=== PATIENT | male | born 1955 | race Caucasian/White ===

== ENCOUNTER → 2018-06-27 | Outpatient (CLI) | payer OTHER ==
[~2018-06-27] VITALS: Ht 185.4 cm; Wt 107.5 kg
[~2018-06-27] MED LIST: ASPI-983 PO; ATOR40TA PO; CATHETER FLUSH 10 ML SYR IV PRN; CLOP75TA28 PO; LEVO200T6 PO; LISI-552 PO; METO-387 PO; NAPR220T66 PO; REGADENOSON 0.4 MG/5 ML SYR (LEXISCAN) IV ONE
[2018-06-27 09:46] VITALS: BP 134/65
[2018-06-27 09:49] VITALS: BP 151/72
[2018-06-27 09:52] VITALS: BP 141/62
[2018-06-28 12:08] VITALS: BP 140/64
--- NOTE | 2018-06-28 12:08 | Cardiology Stress Test Report ---
Stress Test Report Type of NM Stress Test: Test Type: LEXISCAN 0.4MG/5ML Date of Procedure/Referring: Date of Procedure: Jun 27, 2018 PCP Brandon Gaston MD Admitting Physician Herbie Santoyo DO Indications: Chest pain Baseline Heart Rate: 54 Baseline Blood Pressure: Blood Pressure Systolic: 140 Blood Pressure Diastolic: 64 Baseline EKG: Baseline EKG: sinus rhythm Summary & Conclusion: Summary: The patient was brought to the stress lab after informed consent was taken. Stress test was performed according to the Lexiscan protocol. 0.4 mg of IV Lexiscan was given. Low-grade exercise was performed. Baseline EKG showed sinus rhythm at 54 BPM. Initial blood pressure was 140/64 mmHg. Maximum heart rate was 75 bpm and blood pressure 151/72 mmHg. Patient did not have any chest pain, arrhythmias or ST segment changes during the stress test. 10.96 mCi of Myoview were given for rest imaging and 32.2 mCi of Myoview given for stress imaging. Transient ischemic dilatation score 1.06, EF 49 percent. Normal wall motion. Moderate area of inferior apical reversible ischemia. SSS 11, SRS 9, SDS 2. Conclusion: Pharmacological stress test was negative for ischemia. Borderline LV function with no wall motion abnormalities. Evidence of inferior/apical ischemia, coronary angiography is recommended. Brandon GASTON MD Jun 28, 2018 12:08 pm
== END ==
LOC: CARD 07:21
PROVIDERS: ATTEND Internal Medicine Interventional Cardiology
DX: I73.9 Peripheral vascular disease, unspecified (principal); R07.89 Other chest pain; I25.10 Atherosclerotic heart disease of native coronary artery without angina pectoris; I10 Essential (primary) hypertension; E78.5 Hyperlipidemia, unspecified; R06.02 Shortness of breath
CPT/HCPCS: 78452; 93017

== ENCOUNTER 2018-07-07 07:42 | Day surgery (SDC) | payer OTHER ==
[2018-07-07] VITALS (12 sets, daily range): BP systolic 128–180; BP diastolic 59–78
[~2018-07-07] VITALS: Ht 185.4 cm; Wt 108.0 kg
[~2018-07-07 07:42] MED LIST changes: -CATHETER FLUSH 10 ML SYR IV PRN; -REGADENOSON 0.4 MG/5 ML SYR (LEXISCAN) IV ONE
[2018-07-07] MEDS ORDERED: NS IV 1000 ML 1,000 ML IV SCH (07:52)
[2018-07-07] MEDS ORDERED: LIDOCAINE 1% INJ 20 ML 20 ML VIAL ONE (07:55)
[2018-07-07] MEDS ORDERED: HEParin (CATH LAB) 2,000 ML IV ONE (07:55)
[2018-07-07 08:20] LABS: HEMOGLOBIN 15.1 G/DL (13.3-17.7); MEAN PLATELET VOLUME 10.2 FL (7.4-10.4); RED BLOOD COUNT 4.73 10^6/uL (4.35-5.85); RED CELL DISTRIBUTION WIDTH 13.7 % (10.0-14.5)
[2018-07-07] MEDS ORDERED: HEParin 1000 UNIT/ML (10ML VIAL) FOR BOLUS ONE (08:27)
[2018-07-07] MEDS ORDERED: fentaNYL INJECTION 100 MCG/2 ML AMP ONE ×2 (08:27→11:07)
[2018-07-07] MEDS ORDERED: MIDAZOLAM 5 MG/5 ML (VERSED) VIAL ONE ×2 (08:27→11:07)
[2018-07-07 08:37] LABS: ALANINE AMINOTRANSFERASE 23 U/L (0-55); ALBUMIN 4.3 GM/DL (3.2-4.5); ALKALINE PHOSPHATASE 54 U/L (40-136); BILIRUBIN,TOTAL 0.6 MG/DL (0.1-1.0); BUN/CREATININE RATIO 13; CALCIUM 9.6 MG/DL (8.5-10.1); CARBON DIOXIDE 22 MMOL/L (21-32); CHLORIDE 111 MMOL/L (98-107); CREATININE SERUM 1.09 MG/DL (0.60-1.30); GFR ESTIMATED > 60; GLUCOSE 94 MG/DL (70-105); INR 1.1 (0.8-1.4); POTASSIUM 4.3 MMOL/L (3.6-5.0); PROTHROMBIN TIME PATIENT 13.9 SEC (12.2-14.7); SODIUM 142 MMOL/L (135-145); TOTAL PROTEIN 6.8 GM/DL (6.4-8.2)
[2018-07-07] MEDS ORDERED: METO-370 PO (08:43)
[2018-07-07] MEDS ORDERED: ATOR40TA70 PO (08:44)
[2018-07-07] MEDS ORDERED: FLU QUADRIvalent (5+ YOA) 2018-2019 (AFLURIA) 0.5 ML IM ONE (08:45)
[2018-07-07] MEDS ORDERED: TICAGRELOR 90 MG TABLET (BRILINTA) PO ONE (10:19)
[2018-07-07] MEDS ORDERED: NITRO DRIP 25000 MCG/D5W 250 ML IV ONE (10:25)
[2018-07-07] MEDS ORDERED: ENALAPRILAT 2.5 MG/2 ML (VASOTEC) VIAL IV ONE (11:22)
[2018-07-07] MEDS ORDERED: PATIENT MAY USE OWN MEDS, ALL PO SCH (12:30)
--- NOTE | 2018-07-07 12:30 | Coronary Angiography & PCI ---
Coronary Angiography & PCI DATE OF PROCEDURE: 07/07/18 INDICATION: Recurrent chest pain, abnormal nuclear stress test, previous history of PCI. PREOPERATIVE DIAGNOSIS: Recurrent chest pain, abnormal nuclear stress test, previous history of PCI. POSTOPERATIVE DIAGNOSIS: Severe left circumflex artery stenosis, severe distal RCA in-stent restenosis. HISTORY: This is a 62-year-old gentleman with history of previous PCI who presented with recurrent chest pain. Patient also has significant history of PAD. Nuclear stress test was abnormal. Therefore, the patient was scheduled for coronary angiography. PROCEDURES PERFORMED: 1.Coronary angiography. 2.Left heart catheterization. 3.PCI to the left circumflex artery. 4. PTCA to distal RCA in-stent restenosis. 5. Abdominal aortogram. 6. Abdominal aortogram with bilateral lower extremity runoff. COMPLICATIONS: None. SPECIMENS: None. ESTIMATED BLOOD LOSS: 10 mL ANESTHESIA: Conscious sedation ANTICOAGULATION: IV heparin CONTRAST: 290 mL. FLUOROSCOPY: 23.9 minutes. FLOUROSCOPY DOSE: 2515 mgy. PROCEDURE DETAILS: The patient is a 62 male and was brought to the denture laboratory technician after informed consent was taken. All the risks and complications were explained in detail; this included the risk of bleeding, vascular damage, stroke , SC and even . The patient was draped and prepped in the usual sterile fashion. Access was gained in the right femoral artery with a 5 Polish sheath. Right coronary artery angiogram, left heart catheterization was done with a JR4 catheter. Left coronary angiography was performed with a JL4 catheter. Abdominal aortogram was performed since we had difficulty advancing the wire through the iliac artery. History of previous PAD. Abdominal aortogram and bilateral lower extremity runoff was performed with a pigtail catheter. FINDINGS: 1.Left main: Patent. 2.LAD: Mild diffuse disease. Patent stent in the LAD with mild in-stent restenosis. 3.Left circumflex artery: Moderate to severe proximal left circumflex artery stenosis. Stenosis severity 70 percent. Severe ostial OM1 artery stenosis. Stenosis severity is 90 percent. 4.RCA: Severe distal RCA in-stent restenosis. Stenosis severity is 90 percent. 5.Left heart catheterization: LV pressure 131/5 mmHg. LVEDP 13 mmHg. Aortic pressure 109/47 mmHg. Mild to moderate LV systolic dysfunction with global hypokinesis. No gradient across the aortic valve. 6. Abdominal aortogram: Mild diffuse disease in the abdominal aorta. Patent bilateral renal arteries. 7. Abdominal aortogram with bilateral lower extremity runoff: Mild diffuse disease in the distal abdominal aorta. Mild to moderate disease in the right common iliac artery. Mild to moderate disease in the right SFA is noted. Moderate disease in the stent in the left common iliac artery is noted. Moderate disease in the left external iliac artery. At least mild disease in the SFA in the left lower extremity. RECOMMENDATIONS: 1. PCI to the left circumflex artery/OM 1. 2. PTCA to severe distal RCA in-stent restenosis. INTERVENTION DETAILS: EBU 4.0 guide catheter, whisper extra-support guidewire, IV heparin for anticoagulation. ACT was done once which was over 200 seconds. The lesion in the obtuse marginal artery was crossed with the whisper extra-support wire. We then took a Xience Leah 2.5 x 12 mm stent and deployed it at 12 glenna for 37 seconds. The AV groove artery was significantly pinched. Therefore we took a BMW wire and placed it in the OM 1 artery. The whisper extra-support wire was pulled back to the level of the AV groove artery and advanced into the AV groove artery. We then took the 2.5 stent balloon and did an inflation at 16 glenna for 35 seconds in the AV groove artery. We then placed an NC Quantum 3.0 x 6 mm balloon on the BMW wire into the stent. The stent balloon of the 2.5 stent was advanced over the whisper wire. Kissing balloons were done with a 2.5 balloon at 14 glenna and the 3.0 NC balloon at 9 glenna for 15 seconds. Good results were noted however haziness was noted in the proximal left circumflex artery which also had moderate to severe disease. We therefore took another Xience Leah 2.75 15 mm stent and deployed it at 14 glenna for 30 seconds in the proximal left circumflex artery with an overlap with the previous stent. The overlap zone was postdilated with the same stent balloon at 18 glenna for 11 seconds. The previous stent was also postdilated at 12 glenna for 13 seconds. Excellent results were noted. All the wires were taken out and post-angiogram results were excellent with no vascular complication. We then took a JR4 guide catheter for intervention to the right coronary artery with significant dampening was noted. Therefore we changed to a JR4 guide catheter with side holes. We used the same whisper wire and crossed the lesion in the distal RCA with the whisper wire. We took the NC Quantum 3.0 x 6 mm balloon and 2 inflations at 14 and 16 glenna at 35 and 30 seconds respectively. Excellent results were noted with no residual stenosis. The wire was taken out and post-angiogram did not show any vascular complication. Mynx closure of the right femoral artery. CONCLUSIONS: 1. Severe left circumflex artery/OM 1 stenosis treated with 2 drug-eluting stents. 2. Severe distal RCA in-stent restenosis treated successfully with PTCA. 3. Long-term dual antiplatelet therapy. 4. Electrolytes, BUN, creatinine the morning. Aamir Gaston MD, FACP, FACC, [facility] Interventional Cardiology Brandon GASTON MD Jul 07, 2018 12:30 pm
--- NOTE | 2018-07-07 12:30 | Cardiac Procedure Note-CS/ASA ---
Pre-Procedure Note Pre-Op Procedure Note H&P Reviewed The H&P was reviewed, patient examined and no changes noted. Date H&P Reviewed: Jul 07, 2018 Time H&P Reviewed: 09:00 Conscious Sedation Pre-Proced Time 09:00 ASA Score 3 For ASA 3 and 4: Consider anesthesia and medical clearance. Also, for patients with a history of failed moderate sedation consider anesthesia. Airway Lungs Heart ASA score ASA 1: a normal healthy patient ASA 2: a patient with a mild systemic disease (mid diabetes, controlled hypertension, obesity ASA 3: a patient with a severe systemic disease that limits activity (angina , COPD, prior Myocardial infarction) ASA 4: a patient with an incapacitating disease that is a constant threat to life (CHF, renal failure) ASA 5: a moribund patient not expected to survive 24 hrs. (ruptured aneurysm) ASA 6: a declared brain patient whose organs are being harvested. For emergent operations, add the letter E after the classification Mallampati Classification Grade 1 Sedation Plan Analgesia, Amnesia, Plan communicated to team members, Discussed options with patient/fam, Discussed risks with patient/fam The patient is an appropriate candidate to undergo the planned procedure, sedation, and anesthesia. The patient immediately re-assessed prior to indication. Brandon CARCAMO MD Jul 07, 2018 12:30 pm
[2018-07-07] MEDS: NS IV 1000 ML 1,000 ML IV SCH ×2 (12:52→23:41)
[2018-07-07] MEDS: TICAGRELOR 90 MG TABLET (BRILINTA) PO SCH (20:26)
[2018-07-08 03:27] VITALS: BP 147/73
[2018-07-08 04:10] VITALS: BP 148/67
[2018-07-08 05:05] LABS: HEMOGLOBIN 14.2 G/DL (13.3-17.7); MEAN PLATELET VOLUME 10.2 FL (7.4-10.4); RED BLOOD COUNT 4.45 10^6/uL (4.35-5.85); RED CELL DISTRIBUTION WIDTH 13.7 % (10.0-14.5); WHITE BLOOD COUNT 9.4 10^3/uL (4.3-11.0)
[2018-07-08 05:18] LABS: BUN/CREATININE RATIO 15; CARBON DIOXIDE 20 MMOL/L (21-32); CHLORIDE 112 MMOL/L (98-107); CREATININE SERUM 1.01 MG/DL (0.60-1.30); GFR ESTIMATED > 60; GLUCOSE 94 MG/DL (70-105); POTASSIUM 3.8 MMOL/L (3.6-5.0); SODIUM 141 MMOL/L (135-145)
[2018-07-08] MEDS ORDERED: Levothyroxine Sodium 200 MCG PO SCH (06:30)
[2018-07-08 08:00] VITALS: BP 131/61
[2018-07-08] MEDS ORDERED: FLU QUADRIvalent (5+ YOA) 2018-2019 (AFLURIA) 0.5 ML IM ONE (08:41)
[2018-07-08] MEDS: TICAGRELOR 90 MG TABLET (BRILINTA) PO SCH (08:54)
[2018-07-08] MEDS: NS IV 1000 ML 1,000 ML IV SCH (08:58)
[2018-07-08] MEDS ORDERED: ASPIRIN E.C. 81 MG (ECOTRIN) TAB PO SCH ×2 (09:00)
[2018-07-08] MEDS ORDERED: ATORVASTATIN 40 MG (LIPITOR) TABLET PO SCH (09:00)
[2018-07-08] MEDS ORDERED: meTOproloL SUCCINATE 50 MG (TOPROL XL) TAB PO SCH (09:00)
[2018-07-08] MEDS ORDERED: lisINopril 20 MG (PRINIVIL) TABLET PO SCH (09:00)
--- NOTE | 2018-07-08 09:19 | Cardiology Discharge Summary ---
Diagnosis/Chief Complaint Date of Admission 07/07/2018 Date of Discharge 07/08/2018 Admission Diagnosis Recurrent chest pain, abnormal nuclear stress test, previous PCI Final/Discharge Diagnosis Status post PCI to left circumflex artery and PTCA to severe in-stent restenosis of distal RCA Chief Complaint/HPI Chief Complaint/HPI This is a 62-year-old gentleman with history of CAD, status post PCI and PAD, status post bilateral iliac artery stents. He presents with recurrent chest pain. Abnormal nuclear stress test. Coronary angiography was recommended. Discharge Summary Procedures PCI to left circumflex artery/OM 1 with 2 drug-eluting stents. PTCA to severe in-stent restenosis of distal RCA. Discharge Physical Examination Stable. Hospital Course Unremarkable. Pending Labs Laboratory Tests 07/08/18 04:38: White Blood Count 9.4, Red Blood Count 4.45, Hemoglobin 14.2, Hematocrit 39, Mean Corpuscular Volume 88, Mean Corpuscular Hemoglobin 32, Mean Corpuscular Hemoglobin Concent 36, Red Cell Distribution Width 13.7, Platelet Count 202, Mean Platelet Volume 10.2, Sodium Level 141, Potassium Level 3.8, Chloride Level 112, Carbon Dioxide Level 20, Anion Gap 9, Blood Urea Nitrogen 15, Creatinine 1.01, Estimat Glomerular Filtration Rate > 60, BUN/Creatinine Ratio 15, Glucose Level 94, Calcium Level 9.0 Discussion & Recommendations Discussion Dual antiplatelet therapy was discussed at length. Patient will be discharged to follow up in office in 2-4 weeks. Follow up appt.: Dr. Gaston in 2-4 weeks. Dicharge Diet: Cardiac Diet Activity as Tolerated: Yes Home Medications Reviewed patient Home Medication Reconciliation performed by pharmacy medication reconciliations unit technician and/or nursing. Patients Allergies have been reviewed. Discharge Home Medications: Reviewed and agree with Discharge Medication list on patient's Discharge Instruction sheet Condition at discharge Stable. Instructions to patient/family Discussed discharge instructions with patient and family. Brandon GASTON MD Jul 08, 2018 09:19
[2018-07-08] MEDS ORDERED: TICA90TA PO (09:21)
--- NOTE | 2018-07-08 09:22 | Discharge Inst-Post CATH ---
Discharge Inst-CATH Post Cardiac Cath D/C Inst Follow Up/Plan Dr Gaston in two to three weeks. CARDIAC CATH DISCHARGE INSTRUCTIONS *Hold Metformin for 48 hours post heart cath. ACTIVITY * Go Home directly and rest. * Limit activity of the leg (or wrist if it was used) for 7 days including aerobics, swimming, jogging, bicycling, etc. * Restrict stair-climbing for 7 days if possible, if not, climb up with your non -cath leg, then bring together on the same step. * Avoid lifting, pushing, pulling or excessive movement of the affected extremity for 7 days. * Customary sexual activity may be resumed after 2 days-use caution not to use a position that strains or causes pain to the affected extremity. * No driving for 24 hours. * NO SMOKING. * Avoid straining for bowel movements for 7 days. * Gentle walking on level ground is allowed. * Returning to work will depend on the type of procedure and the results. Your doctor will discuss this with you. CALL YOUR DOCTOR FOR ANY OF THE FOLLOWING: *If bleeding from the puncture site occurs- Apply gentle pressure to site with clean cloth and call your doctor or EMS. * If a knot or lump forms under the skin, increases in size, or causes pain. * If bruising appears to be worsening or moving further down your leg instead of disappearing. * Temperature above 101 F. CARE OF YOUR GROIN INCISION; * Bruising or purple discoloration of the skin near the puncture site is common. * You may shower only, no bathtub bathing for 5 days. Be careful to avoid slipping as your leg may feel stiff. * If a closure device was used on your femoral artery, please see the attached guide regarding care of the device and your leg. * Leave the dressing on, until removed by office staff. CARE OF YOUR WRIST INCISION; * Bruising or purple discoloration of the skin near the puncture site is common. * You may shower. * DO NOT submerge wrist. * Leave dressing on, until removed by office staff.. Brandon GASTON MD Jul 08, 2018 9:22 am
== END 2018-07-08 10:20 | disposition home or self-care (01) ==
LOC: CATH 07:42 → 4TH 11:55 → CATH 07-08 10:20
PROVIDERS: ATTEND Internal Medicine Interventional Cardiology
DX: I25.10 Atherosclerotic heart disease of native coronary artery without angina pectoris (principal); T82.855A Stenosis of coronary artery stent, initial encounter; Z95.5 Presence of coronary angioplasty implant and graft; Z79.899 Other long term (current) drug therapy; E78.5 Hyperlipidemia, unspecified; I25.2 Old myocardial infarction; I10 Essential (primary) hypertension; E03.9 Hypothyroidism, unspecified; G47.33 Obstructive sleep apnea (adult) (pediatric); I73.9 Peripheral vascular disease, unspecified; F17.210 Nicotine dependence, cigarettes, uncomplicated
CPT/HCPCS: 36415; 75625; 80048; 80053; 85027; 85347; 85610; 85730; 87081; 90471; 90686; 93005; 93458

== ENCOUNTER 2021-09-02 12:00 | Day surgery (SDC) | payer MEDICARE, OTHER ==
[~2021-09-02] VITALS: Ht 185.4 cm; Wt 105.1 kg
[2021-09-02] VITALS (10 sets, daily range): BP systolic 122–152; BP diastolic 56–65
[2021-09-02 10:50] LABS: BASOPHILS # (AUTO) 0.1 10^3/uL (0.0-0.1); BASOPHILS % (AUTO) 1 % (0-10); EOSINOPHILS # (AUTO) 0.2 10^3/uL (0.0-0.3); EOSINOPHILS % (AUTO) 2 % (0-10); HEMATOCRIT 43 % (40-54); HEMOGLOBIN 15.3 g/dL (13.3-17.7); LYMPHOCYTES # (AUTO) 2.4 10^3/uL (1.0-4.0); LYMPHOCYTES % (AUTO) 24 % (12-44); MEAN CORPUSCULAR HEMOGLOBIN 32 pg (25-34); MEAN CORPUSCULAR HGB CONC 35 g/dL (32-36); MEAN CORPUSCULAR VOLUME 92 fL (80-99); MEAN PLATELET VOLUME 10.1 fL (9.0-12.2); MONOCYTES # (AUTO) 0.8 10^3/uL (0.0-1.0); MONOCYTES % (AUTO) 8 % (0-12); NEUTROPHILS # (AUTO) 6.4 10^3/uL (1.8-7.8); NEUTROPHILS % (AUTO) 64 % (42-75); PLATELET COUNT 190 10^3/uL (130-400)
[2021-09-02 11:05] LABS: PROTHROMBIN TIME PATIENT 13.2 SEC (12.2-14.7)
[2021-09-02 11:13] LABS: ALBUMIN 4.2 GM/DL (3.2-4.5); BILIRUBIN,TOTAL 0.4 MG/DL (0.1-1.0); CALCIUM 9.5 MG/DL (8.5-10.1); CREATININE SERUM 1.17 MG/DL (0.60-1.30); POTASSIUM 4.1 MMOL/L (3.6-5.0); TOTAL PROTEIN 6.9 GM/DL (6.4-8.2)
[~2021-09-02 12:00] MED LIST changes: +ASPI-1238 PO; -ASPI-983 PO; +ATOR40TA70 PO; +CLOP75TA69 PO; +HEParin (CATH LAB) 1,000 ML IV ONE; +LIDOCAINE 1% INJ 20 ML VIAL ONE; -LISI-552 PO; +LISI20TA26 PO; -METO-387 PO; +METO50TA7 PO; +MIDAZOLAM 5 MG/5 ML (VERSED) VIAL ONE; +MTP25TSR PO; +NS IV 1000 ML 1,000 ML IV SCH; +NS IV 1000 ML 1,000 ML ONE; +TICA90TA PO; +fentaNYL INJ 100 MCG/2 ML AMP ONE
--- NOTE | 2021-09-02 12:50 | Cardiac Procedure Note-CS/ASA ---
Pre-Procedure Note Pre-Op Procedure Note H&P Reviewed The H&P was reviewed, patient examined and no changes noted. Date H&P Reviewed: Sep 02, 2021 Time H&P Reviewed: 11:30 Conscious Sedation Pre-Proced Time 11:30 ASA Score 3 For ASA 3 and 4: Consider anesthesia and medical clearance. Also, for patients with a history of failed moderate sedation consider anesthesia. Airway Lungs Heart ASA score ASA 1: a normal healthy patient ASA 2: a patient with a mild systemic disease (mid diabetes, controlled hypertension, obesity ASA 3: a patient with a severe systemic disease that limits activity (angina, COPD, prior Myocardial infarction) ASA 4: a patient with an incapacitating disease that is a constant threat to life (CHF, renal failure) ASA 5: a moribund patient not expected to survive 24 hrs. (ruptured aneurysm) ASA 6: a declared brain- patient whose organs are being harvested. For emergent operations, add the letter E after the classification Mallampati Classification Grade 2 Sedation Plan Analgesia, Amnesia, Plan communicated to team members, Discussed options with patient/fam, Discussed risks with patient/fam The patient is an appropriate candidate to undergo the planned procedure, sedation, and anesthesia. The patient immediately re-assessed prior to indication. NESHA CRUZ MD FACP FAC CCDS Sep 02, 2021 12:50
--- NOTE | 2021-09-02 12:53 | Discharge Inst-Cardiology ---
Discharge Inst-Cardiac Discharge Medications Continued Medications: Aspirin (Aspirin EC) 81 Mg Tablet.dr 81 MG PO DAILY for 90 Days, TAB 3 Refills Atorvastatin Calcium (Atorvastatin Calcium) 40 Mg Tablet 40 MG PO DAILY, TAB Clopidogrel Bisulfate (Plavix) 75 Mg Tablet 75 MG PO DAILY, TAB Levothyroxine Sodium (Levothyroxine Sodium) 200 Mcg Tablet 200 MCG PO DAILY, TAB Lisinopril (Lisinopril) 20 Mg Tablet 20 MG PO DAILY for 90 Days, TAB 3 Refills Metoprolol Succinate (Metoprolol Succinate) 50 Mg Tab.er.24h 50 MG PO DAILY, TAB NESHA CRUZ MD FACP FACC CCDS Sep 02, 2021 12:52
--- NOTE | 2021-09-02 12:53 | Discharge Inst-Post CATH ---
Discharge Inst-CATH/EP Post Cardiac Cath/EP D/C Inst Follow Up/Plan Dr Chapa at [facility] for consideration of CABG within [address] Rodgers in one month ACTIVITY * Go Home directly and rest. * Limit activity of the leg (or wrist if it was used) for 7 days including aerobics, swimming, jogging, bicycling, etc. * Restrict stair-climbing for 7 days if possible, if not, climb up with your non-cath leg, then bring together on the same step. * Avoid lifting, pushing, pulling or excessive movement of the affected extremity for 7 days. * Customary sexual activity may be resumed after 2 days-use caution not to use a position that strains or causes pain to the affected extremity. * No driving for 24 hours. * NO SMOKING. * Avoid straining for bowel movements for 7 days. * Gentle walking on level ground is allowed. * Returning to work will depend on the type of procedure and the results. Your doctor will discuss this with you. CALL YOUR DOCTOR FOR ANY OF THE FOLLOWING: *If bleeding from the puncture site occurs- Apply gentle pressure to site with clean cloth and call your doctor or EMS. * If a knot or lump forms under the skin, increases in size, or causes pain. * If bruising appears to be worsening or moving further down your leg instead of disappearing. * Temperature above 101 F. CARE OF YOUR GROIN INCISION; * Bruising or purple discoloration of the skin near the puncture site is common. * You may shower only, no bathtub bathing for 5 days. Be careful to avoid slipping as your leg may feel stiff. * If a closure device was used on your femoral artery, please see the attached guide regarding care of the device and your leg. * Leave dressing on FOR 24 hours. CARE OF YOUR WRIST INCISION; * Bruising or purple discoloration of the skin near the puncture site is common. * You may shower. * DO NOT submerge wrist. * Leave dressing on FOR 24 hours. NESHA RODGERS MD FACP FAC CCDS Sep 02, 2021 12:53
[2021-09-02] MEDS ORDERED: NS IV 1000 ML 1,000 ML IV SCH (13:00)
[2021-09-02] MEDS ORDERED: PATIENT MAY USE OWN MEDS, ALL PO SCH (13:00)
--- NOTE | 2021-09-02 14:45 | CARDIAC CATHETERIZATION ---
DATE OF SERVICE: 09/02/2021 CARDIAC CATHETERIZATION REPORT INDICATION FOR PROCEDURE: The patient is a 66-year-old gentleman, who has a history of coronary artery disease and who has been having symptoms that are suggestive of increasing angina with exertion. Cardiac catheterization was carried out today after having obtained an informed consent. DESCRIPTION OF PROCEDURE: He was brought to the cardiac catheterization laboratory in a fasting state. Right groin was prepped and draped in the usual sterile fashion. Lidocaine 1% was used for local anesthesia. Modified Seldinger technique was used to advance a 5-Burmese sheath in the right femoral artery, 5-Burmese JL4 catheter was used for left coronary angiography, 5-Burmese JR4 catheter for right coronary angiography, and 5-Burmese pigtail catheter was used for left heart catheterization and left ventricular angiography. At the end of the procedure, angiography of the right femoral artery was carried out through the sheath and Mynx was used to achieve hemostasis. He tolerated the procedure well. HEMODYNAMICS: Left ventricular end-diastolic pressure following coronary angiography was approximately 14 mmHg. There was no significant pressure gradient on pullback across the aortic valve. CORONARY ANGIOGRAPHY: Left main coronary artery has moderate distal stenosis. Left anterior descending artery has 70% ostial and proximal stenosis. Left circumflex artery has approximately 80% ostial and proximal stenosis. Right coronary artery has diffuse mild plaques. There are patent stents in the mid left anterior descending and in the left circumflex obtuse marginal systems. LEFT VENTRICULAR ANGIOGRAPHY: Left ventricular angiography was carried out in the right anterior oblique projection. Global left ventricular systolic function is well preserved. Left ventricular ejection fraction is approximately 50%. CONCLUSIONS: 1. Coronary artery disease primarily consisting of 70% to 80% ostial and proximal stenosis of the left anterior descending and approximately 80% stenosis of the ostial left circumflex. The mid left anterior descending and the mid left circumflex and the proximal first obtuse marginal have patent stented segments. The right coronary artery also has a patent stented segment in its mid portion. 2. Well preserved global left ventricular systolic function with an ejection fraction of approximately 50%. 3. Left ventricular end-diastolic pressure 14 mmHg. DISCUSSION AND RECOMMENDATIONS: Based on results of the study, coronary artery bypass surgery appears to be the best treatment option. We spoke with the cardiovascular surgical service at [facility] and a referral is being made for evaluation for coronary artery bypass surgery. Meanwhile, we have advised the patient of the findings and the plan of treatment and to avoid any activity that results in chest discomfort until bypass surgery has been accomplished. We have advised compliance with medications. We have advised that he reports to the emergency room if he had an episode of chest discomfort that is not relieved with one single nitroglycerin tablet with three to four minutes of the onset of chest discomfort. Job ID: [id number] DocumentID: [id number] Dictated Date: 09/02/2021 12:35:51 [place] Date: 09/02/2021 14:44:57 Dictated By: NESHA CRUZ MD, MA, FACP, FACC,
== END 2021-09-02 16:04 | disposition home or self-care (01) ==
LOC: CATH 12:00 → SDC 12:50 → CATH 16:04
PROVIDERS: ATTEND Internal Medicine Cardiovascular Disease
DX: I25.10 Atherosclerotic heart disease of native coronary artery without angina pectoris (principal); I73.9 Peripheral vascular disease, unspecified; I65.22 Occlusion and stenosis of left carotid artery; E78.5 Hyperlipidemia, unspecified; F17.210 Nicotine dependence, cigarettes, uncomplicated; Z79.890 Hormone replacement therapy; Z79.899 Other long term (current) drug therapy; Z79.82 Long term (current) use of aspirin; Z79.02 Long term (current) use of antithrombotics/antiplatelets; Z83.3 Family history of diabetes mellitus; Z80.9 Family history of malignant neoplasm, unspecified; Z82.3 Family history of stroke
CPT/HCPCS: 80053; 80061; 85025; 85610; 85730; 87081; 93458; C1760; C1769; C1894; 36415